=== PATIENT | male | born 1945 | race Caucasian/White ===

== ENCOUNTER 2020-08-29 15:49 | Inpatient (IN) | payer OTHER ==
[~2020-08-29] VITALS: Ht 177.8 cm; Wt 97.4 kg
[2020-08-29 16:30] LABS: Basophils # (auto) 0 10 ^3/uL (0-0.2); Basophils % (auto) 0.7 % (0.0-2.0); Eosinophils # (auto) 0.4 10 ^3/uL (0-0.8); Eosinophils % (auto) 6.6 % (0.0-7.0); Hematocrit 43.7 % (41.0-53.0); Hemoglobin 14.8 g/dL (13.5-17.5); Lymphocytes # (auto) 1.9 10 ^3/uL (0.4-5.4); Lymphocytes % (auto) 31.1 % (10.0-50.0); Mean Corpuscular Hemoglobin 32.2 pg (28.0-32.0); Mean Corpuscular Hgb Conc. 33.8 g/dL (32.0-36.0); Mean Corpuscular Volume 95.1 fL (80.0-100.0); Monocytes # (auto) 0.5 10 ^3/uL (0-1.3); Monocytes % (auto) 7.9 % (0.0-12.0); Neutrophils # (auto) 3.2 10 ^3/uL (1.6-8.6); Neutrophils % (auto) 53.7 % (37.0-80.0); Platelet Count (auto) 217 10^3/uL (140-450); Red Blood Cells 4.59 10^6/uL (4.5-5.90); Red Cell Distribution Width 13.3 % (11.8-14.3)
[2020-08-29 16:44] LABS: Albumin 3.7 g/dL (3.4-5.0)
[2020-08-29 16:49] LABS: BUN/Creatinine Ratio 10.9; Bilirubin, Total 0.3 mg/dL (0.2-1.0); Total Protein 6.9 g/dL (6.4-8.2)
[2020-08-29] MEDS ORDERED: NITROGLYCERIN 0.4 MG SL TAB SL PRN (21:00)
[2020-08-29] MEDS ORDERED: ACETAMINOPHEN 325 MG TAB PO PRN (21:00)
[2020-08-29] MEDS ORDERED: MORPHINE SULF INJ 2 MG/ML SYRINGE 1ML IV PRN (21:00)
[2020-08-29] MEDS ORDERED: ONDANSETRON HCL 4 MG/2 ML VIAL IV PRN (21:00)
[2020-08-29] MEDS ORDERED: TEMAZEPAM 15 MG CAP PO PRN (21:00)
[2020-08-29] MEDS ORDERED: DEXTROSE (50%) 50ML SYRG IV PRN (21:00)
[2020-08-29] MEDS ORDERED: ATORVASTATIN 20 MG TAB PO SCH (22:00)
[2020-08-29] MEDS: InsuLIN REG 1unit/0.01ml Soln (100units/ml) SC SCH (22:00)
[2020-08-29 23:03] VITALS: BP 148/85
[2020-08-29] MEDS: ACCU-CHEK COMFORT CURVE STRIP VI SCH (23:46)
[2020-08-29] MEDS: FAMOTIDINE 20 MG TAB PO SCH (23:46)
--- NOTE | 2020-08-29 23:50 | NUR ---
Pt states that he does not have DM and palomino not want his BS checked anymore. Pt BS recorded as 154, pt refused insulin injection and is choosing to refuse all further blood glucose monitoring and insulin administration. Pt educated on the purpose and use of blood glucose monitoring and insulin administration. Pt still refuses. Will inform day RN regarding further care.
--- NOTE | 2020-08-29 23:50 | NUR ---
MS admit from ER SELENALAURA admitted to tele/MS after SBAR not received. Patient oriented to Danielle Mendoza, RN primary RN, unit, room, bed, and unit policies regarding patient care and visiting hours. Patient weighed by bedscale and encouraged to call if they need something. Safety measures in place, bed in lowest locked position, bed rails raised x2, call light within reach. All questions and concerns addressed, patient verbalized understanding.
[2020-08-30 00:13] VITALS: BP 148/85
--- NOTE | 2020-08-30 00:21 | NUR ---
Pt reports home meds unknown. Pt states he does not have a list and cannot remember.
--- NOTE | 2020-08-30 01:32 | NUR ---
ER CALLED CARDIO CONSULT WITH. DR PA.
[2020-08-30 05:00] VITALS: BP 139/72
[2020-08-30 06:07] LABS: Basophils # (auto) 0 10 ^3/uL (0-0.2); Basophils % (auto) 0.6 % (0.0-2.0); Eosinophils # (auto) 0.5 10 ^3/uL (0-0.8); Eosinophils % (auto) 7.4 % (0.0-7.0); Hematocrit 42.5 % (41.0-53.0); Hemoglobin 14.2 g/dL (13.5-17.5); Lymphocytes % (auto) 29.8 % (10.0-50.0); Mean Corpuscular Hemoglobin 31.8 pg (28.0-32.0); Mean Corpuscular Hgb Conc. 33.4 g/dL (32.0-36.0); Mean Corpuscular Volume 95.4 fL (80.0-100.0); Monocytes # (auto) 0.5 10 ^3/uL (0-1.3); Monocytes % (auto) 8.2 % (0.0-12.0); Neutrophils # (auto) 3.5 10 ^3/uL (1.6-8.6); Platelet Count (auto) 186 10^3/uL (140-450); Red Blood Cells 4.46 10^6/uL (4.5-5.90); Red Cell Distribution Width 13.3 % (11.8-14.3); White Blood Cell 6.6 10^3/uL (4.4-10.8)
[2020-08-30 06:43] LABS: Calcium 9.1 mg/dL (8.5-10.1); Potassium 3.9 mmol/L (3.5-5.1)
[2020-08-30] MEDS: InsuLIN REG 1unit/0.01ml Soln (100units/ml) SC SCH ×2 (06:46→11:30)
[2020-08-30] MEDS: ACCU-CHEK COMFORT CURVE STRIP VI SCH ×2 (06:47→11:40)
[2020-08-30 06:52] LABS: BUN/Creatinine Ratio 13.1
[2020-08-30] MEDS ORDERED: LEVOTHYROXINE SODIUM 50 MCG TAB PO SCH (07:00)
--- NOTE | 2020-08-30 07:30 | NUR ---
Opening Shift Note Assumed care of patient, awake and alert. No S/S of distress/SOB or pain. Instructed on POC and to call for assist PRN, will continue to monitor for changes Q1hr and PRN. Bed in low and locked position, rails up x2, no-slip socks on.
--- NOTE | 2020-08-30 07:49 | NUR ---
DR SULTANA AT BEDSIDE CHECK PACEMAKER TODAY, MAY DC IF APPROPRIATE FIRING.
--- NOTE | 2020-08-30 08:00 | NUR ---
AMA TO SMOKE LAURA WALTERS states they want to leave the floor Against Medical Advice (AMA) to go outside and smoke. Patient encouraged to stay on floor and not smoke. Dr notified of patient's wishes. Patient advised of the risks of leaving AMA. Patient verbalized understanding and signed required AMA form.
[2020-08-30 08:21] VITALS: BP 123/67
--- NOTE | 2020-08-30 08:30 | NUR ---
CALL TO [facility] PROVIDED PATIENTS INFORMATION AND DEVICE MODEL, TO BE IN TO INTERROGATE THIS AFTERNOON, CALLED AND SPOKE TO DANIAL [phone].
[2020-08-30] MEDS ORDERED: ATOR40TA52 PO (08:43)
[2020-08-30] MEDS ORDERED: HCTZ25T PO (08:43)
[2020-08-30] MEDS ORDERED: ASPI81CH43 PO (08:43)
[2020-08-30] MEDS ORDERED: LOSA-39 PO (08:43)
[2020-08-30] MEDS ORDERED: METF-370 PO (08:43)
[2020-08-30] MEDS ORDERED: LEVO150T10 PO (08:43)
[2020-08-30] MEDS ORDERED: GLIM4TAB42 PO (08:43)
[2020-08-30] MEDS ORDERED: CAR125T PO ×2 (08:43→13:31)
[2020-08-30] MEDS ORDERED: NITR1SPR TL (08:43)
[2020-08-30] MEDS: FAMOTIDINE 20 MG TAB PO SCH (09:43)
[2020-08-30] MEDS ORDERED: HCTZ 25 MG TAB PO SCH (10:00)
[2020-08-30] MEDS ORDERED: LOSARTAN POTASSIUM 50 MG TAB PO SCH (10:00)
[2020-08-30 10:13] LABS: Urine Bacteria NONE SEEN /hpf (None Seen); Urine Blood Negative /uL (Negative); Urine Specific Gravity 1.022 (1.001-1.035); Urine WBC 1 /hpf (0 - 3)
[2020-08-30 12:52] VITALS: BP 149/88
--- NOTE | 2020-08-30 13:01 | NUR ---
DR Justin ORTEGA AT BEDSIDE D/C IF CLEARED BY CARDIOLOGY AFTER PACEMAKER INTERROGATION
--- NOTE | 2020-08-30 13:05 | NUR ---
CALL FROM DR SULTANA CONCERNING THE PATIENTS TSH LEVEL, REQUESTING PER DR Justin ORTEGA DISCRETION, ADJUST LEVOTHYROXINE. MURCIA NOTIFIED.
--- NOTE | 2020-08-30 13:10 | NUR ---
PACEMAKER INTERROGATION AT BEDSIDE
--- NOTE | 2020-08-30 13:15 | NUR ---
DR Justin ORTEGA-TSH LEVEL DR ORTEGA HAD TELEPHONE CONVERSATION AND REVIEWED THE PLAN OF CARE WITH DR DARLING-ENDOCRINOLOGY REGARDING THE TSH LEVEL, RECOMMENDED TO HOLD LEVOTHYROXINE FOR 2 DAYS AND THEN START WITH 125MCG DAILY AND FOLLOW UP WITH PRIMARY DOCTOR. PATIENT EDUCATED AND VERBALIZED UNDERSTANDING. WHILE AT BEDSIDE, DR SULTANA AND DR ORTEGA HAD PHONE CONVERSATION REGARDING PATIENTS PACEMAKER INTERROGATION EVENT, OK TO DC WITH CHANGES TO MEDICATIONS PER DR SULTANA'S DOCUMENTATION.
[2020-08-30] MEDS ORDERED: APIX5TAB OR (13:30)
[2020-08-30] MEDS ORDERED: LEV50T GT (13:30)
--- NOTE | 2020-08-30 14:31 | NUR ---
DISCHARGE Discharge instructions given as ordered. Encourage to follow up with PMD as instructed. All questions and concerns addressed. Patient verbalized understanding. Medication reconciliation form completed and copy given to patient. IV removed with catheter intact, pressure dressing applied. Telemetry unit returned to ICU. Patient taken to vehicle via wheelchair with all personal belongings, accompanied by staff and family member. No distress noted at time of departure.
== END 2020-08-30 14:30 | disposition home or self-care (01) | DRG 309 ==
LOC: ER 15:49 → TELE 15:50 → TELE-CENTR 22:54
PROVIDERS: ADMIT Nurse Practitioner; ATTEND Internal Medicine
PROC: 4B02XTZ Measurement of Cardiac Defibrillator, External Approach (ICD-10-PCS; principal; 2020-08-30)
DX: T82.110A Breakdown (mechanical) of cardiac electrode, initial encounter (principal); I50.22 Chronic systolic (congestive) heart failure; Y71.2 Prosthetic and other implants, materials and accessory cardiovascular devices associated with adverse incidents; E11.9 Type 2 diabetes mellitus without complications; I25.10 Atherosclerotic heart disease of native coronary artery without angina pectoris; E66.9 Obesity, unspecified; I25.5 Ischemic cardiomyopathy; I11.0 Hypertensive heart disease with heart failure; E03.9 Hypothyroidism, unspecified; I48.91 Unspecified atrial fibrillation; Z83.3 Family history of diabetes mellitus; Z79.4 Long term (current) use of insulin; Z88.8 Allergy status to other drugs, medicaments and biological substances; Z95.810 Presence of automatic (implantable) cardiac defibrillator; Z68.30 Body mass index [BMI] 30.0-30.9, adult; Z79.899 Other long term (current) drug therapy; Z91.19 Patient's noncompliance with other medical treatment and regimen
CPT/HCPCS: 36415; 71046; 80048; 80053; 81001; 82962; 83880; 84443; 84484; 85025; G0378

== ENCOUNTER 2021-08-08 12:41 | Inpatient (IN) | payer OTHER ==
[~2021-08-08] VITALS: Ht 177.8 cm; Wt 199.0 kg
[~2021-08-08 12:41] MED LIST: APIX5TAB OR; ASPI81CH43 PO; ATOR40TA52 PO; CAR125T PO; GLIM4TAB42 PO; HYDR25TA5 PO; LEV50T GT; LOSA-39 PO; METF-370 PO; NITR1SPR TL
[2021-08-08 13:23] LABS: Basophils # (auto) 0.1 10 ^3/uL (0-0.2); Basophils % (auto) 0.8 % (0.0-2.0); Eosinophils # (auto) 0.5 10 ^3/uL (0-0.8); Eosinophils % (auto) 7.2 % (0.0-7.0); Hematocrit 41.3 % (41.0-53.0); Lymphocytes # (auto) 1.9 10 ^3/uL (0.4-5.4); Lymphocytes % (auto) 27.7 % (10.0-50.0); Mean Corpuscular Hemoglobin 31.8 pg (28.0-32.0); Mean Corpuscular Hgb Conc. 33.9 g/dL (32.0-36.0); Mean Corpuscular Volume 93.9 fL (80.0-100.0); Monocytes # (auto) 0.5 10 ^3/uL (0-1.3); Monocytes % (auto) 7.3 % (0.0-12.0); Neutrophils # (auto) 3.9 10 ^3/uL (1.6-8.6); Red Cell Distribution Width 13.3 % (11.8-14.3); White Blood Cell 6.8 10^3/uL (4.4-10.8)
[2021-08-08 13:48] LABS: Potassium 4.7 mmol/L (3.5-5.1)
[2021-08-08 13:58] LABS: Albumin 3.6 g/dL (3.4-5.0); BUN/Creatinine Ratio 16.2; Bilirubin, Total 0.4 mg/dL (0.2-1.0); Calcium 8.9 mg/dL (8.5-10.1); Magnesium 2.2 mg/dL (1.6-2.6); Total Protein 7.1 g/dL (6.4-8.2)
[2021-08-08] MEDS ORDERED: MORPHINE SULFATE INJECTION 2 MG/ML SYRG IV PRN (14:45)
[2021-08-08] MEDS ORDERED: NITROGLYCERIN 0.4 MG SL TAB SL PRN (14:45)
[2021-08-08] MEDS ORDERED: METOPROLOL TARTRATE 1MG/1ML-5ML VIAL IV PRN (14:45)
[2021-08-08 15:46] LABS: Free T4 (Free Thyroxine) 1.59 ng/dL (0.89-1.76); T3 Total 0.99 ng/mL (0.60-1.81)
[2021-08-08] MEDS: AMIODARONE HCL 200 MG TAB PO SCH (22:47)
[2021-08-08] MEDS: CARVEDILOL 12.5 MG TAB PO SCH (22:48)
[2021-08-09] MEDS ORDERED: LEVOTHYROXINE SODIUM 50 MCG TAB PO SCH (07:00)
[2021-08-09] MEDS ORDERED: ADENOSINE 76 MG in GIVE UN-DILUTED 0 ML IV STA (08:43)
[2021-08-09 10:00] VITALS: BP 144/69
[2021-08-09 13:00] VITALS: BP 120/66
[2021-08-09] MEDS ORDERED: AMIO200T33 PO (13:12)
[2021-08-09] MEDS: AMIODARONE HCL 200 MG TAB PO SCH (13:29)
[2021-08-09] MEDS: CARVEDILOL 12.5 MG TAB PO SCH (13:33)
[2021-08-09 17:00] VITALS: BP 127/65
== END 2021-08-09 18:00 | disposition home or self-care (01) | DRG 315 ==
LOC: ER 12:41 → TELE 14:34 → TELE-WESTW 08-09 09:15
PROVIDERS: ADMIT Internal Medicine; ATTEND Internal Medicine
DX: T82.897A Other specified complication of cardiac prosthetic devices, implants and grafts, initial encounter (principal); I47.2 Ventricular tachycardia; I50.22 Chronic systolic (congestive) heart failure; I42.9 Cardiomyopathy, unspecified; E03.9 Hypothyroidism, unspecified; E11.9 Type 2 diabetes mellitus without complications; E78.5 Hyperlipidemia, unspecified; Z20.822 Contact with and (suspected) exposure to COVID-19; F17.210 Nicotine dependence, cigarettes, uncomplicated; I11.0 Hypertensive heart disease with heart failure; I48.0 Paroxysmal atrial fibrillation; Z83.3 Family history of diabetes mellitus; Z95.810 Presence of automatic (implantable) cardiac defibrillator; Z88.8 Allergy status to other drugs, medicaments and biological substances; Y83.8 Other surgical procedures as the cause of abnormal reaction of the patient, or of later complication, without mention of misadventure at the time of the procedure; Y92.098 Other place in other non-institutional residence as the place of occurrence of the external cause
CPT/HCPCS: 36415; 71045; 78452; 80053; 83735; 84439; 84443; 84480; 84484; 85025; 87426; 93005; 93017; 93306; G0378; J0153